=== PATIENT | male | born 1985 | race Caucasian/White ===

== ENCOUNTER 2018-07-21 15:03 | Inpatient (IN) | payer MEDICAID ==
[~2018-07-21] VITALS: Ht 157.5 cm; Wt 44.0 kg
--- NOTE | 2018-07-21 15:08 | NUR ---
NO ANSWER IN LOBBY AT THIS TIME.
--- NOTE | 2018-07-21 15:20 | NUR ---
pt to room from wall; BIB [facility] on Legal hold for SI ("no point in living, just want to end it"), flight of ideas, easily agitated; hx schitzophrenia & marijuana use; pt changed into gown, mostly calm & cooperative, NAD, comfort measures provided, pt in safe environment, personal belongings x2 bags (back pack & pt belongings bag) placed in locker, pt had a kitchen knife which was placed with security.
[2018-07-21 15:59] LABS: BASOPHILS # (AUTO) 0.03 x10^3/uL (0-0.1); BASOPHILS % (AUTO) 0 % (0-1); EOSINOPHILS # (AUTO) 0.01 x10^3/uL (0-0.4); EOSINOPHILS % (AUTO) 0 % (1-7); LYMPHOCYTES # (AUTO) 0.76 x10^3/uL (1-3.4); LYMPHOCYTES % (AUTO) 6 % (22-44); MD NO; MEAN CORPUSCULAR HEMOGLOBIN 29.5 pg (27.5-34.5); MEAN CORPUSCULAR HGB CONC 33.2 g/dL (33.2-36.2); MEAN CORPUSCULAR VOLUME 88.8 fL (81-97); MEAN PLATELET VOLUME 10.7 fL (7.4-10.4); MONOCYTES # (AUTO) 1.27 x10^3/uL (0.2-0.8); MONOCYTES % (AUTO) 9 % (2-9); NEUTROPHILS # (AUTO) 11.44 x10^3/uL (1.8-6.8); NEUTROPHILS % (AUTO) 85 % (42-75); PLATELET COUNT 188 x10^3/uL (130-400); RED BLOOD COUNT 5.63 x10^6/uL (4.38-5.82); RED CELL DISTRIBUTION WIDTH 14.7 % (9.4-14.8)
--- NOTE | 2018-07-21 16:03 | NUR ---
pt laying on gurney awake & calm, talking to self but responds to staff, NAD, comfort measures provided, pt remains in safe environment, sitter in view.
--- NOTE | 2018-07-21 16:07 | NUR ---
dinner tray given
[2018-07-21 16:09] LABS: ALBUMIN 4.5 g/dL (3.4-5.0); CALCIUM 8.4 mg/dL (8.5-10.1); CHLORIDE 93 mmol/L (98-107)
[2018-07-21 16:13] LABS: ALANINE AMINOTRANSFERASE 312 U/L (12-78); ALKALINE PHOSPHATASE 71 U/L (45-117); ANION GAP 9 mmol/L (5-15); BILIRUBIN,TOTAL 1.7 mg/dL (0.2-1.0); CREATININE 1.49 mg/dL (0.7-1.3); TOTAL PROTEIN 7.9 g/dL (6.4-8.2)
[2018-07-21 16:20] LABS: SALICYLATE LEVEL < 1.7 mg/dL (2.8-20.0)
[2018-07-21] MEDS ORDERED: LORazepam 1MG TABLET ONE (16:29)
[2018-07-21] MEDS ORDERED: LORazepam 1MG TABLET PO ONE (16:30)
[2018-07-21 16:48] LABS: AMPHETAMINE SCREEN, URINE Negative (Negative); BARBITURATE SCREEN, URINE Negative (Negative); BENZODIAZEPINE SCREEN, URINE Negative (Negative); CANNABINOID SCREEN, URINE Positive (Negative); COCAINE SCREEN, URINE Negative (Negative); METHADONE SCREEN, URINE Negative (Negative); OPIATE SCREEN, URINE Negative (Negative)
[2018-07-21] MEDS ORDERED: SODIUM CHLORIDE 0.9% 1,000ML IVBOLUS ONE (17:00)
--- NOTE | 2018-07-21 17:01 | NUR ---
pt laying on gurney mostly sleeping, NAD with equal chest rise/fall, no needs at this time, pt remains in safe environment, sitter in full view.
--- NOTE | 2018-07-21 17:17 | NUR ---
new dinner tray given without pork, per pt request.
--- NOTE | 2018-07-21 18:00 | NUR ---
pt continues laying on gurney with eyes closed, responds to staff, NAD, comfort measures provided, pt remains in safe environment, sitter in view.
--- NOTE | 2018-07-21 18:52 | NUR ---
report given to Jose Miguel
--- NOTE | 2018-07-21 19:24 | NUR ---
ASSUMED CARE FOR THIS PT AND AWAITING ADMIT MD WITH IVF RUNNING.
--- NOTE | 2018-07-21 20:58 | NUR ---
REPORT FROM GABRIEL GAMING. PT RESTING WITH NO NEEDS AT THIS TIME. SITTER IN VIEW OF PT.
[2018-07-21] MEDS ORDERED: BISACODYL 10 MG SUPP PR PRN (21:00)
[2018-07-21] MEDS ORDERED: ACETAMINOPHEN 325 MG TABLET PO PRN (21:00)
[2018-07-21] MEDS ORDERED: ONDANSETRON ODT 4 MG PO PRN (21:00)
[2018-07-21] MEDS ORDERED: POLYETHYLENE GLYCOL 17 GM PACKET PO PRN (21:00)
[2018-07-21 22:49] VITALS: BP 108/63
[2018-07-21] MEDS: SODIUM CHLORIDE 0.9% 1,000 ML IV SCH (22:53)
[2018-07-22 01:41] VITALS: BP 116/68
[2018-07-22 05:47] LABS: BASOPHILS # (AUTO) 0.01 x10^3/uL (0-0.1); BASOPHILS % (AUTO) 0 % (0-1); EOSINOPHILS # (AUTO) 0.03 x10^3/uL (0-0.4); EOSINOPHILS % (AUTO) 0 % (1-7); LYMPHOCYTES # (AUTO) 0.91 x10^3/uL (1-3.4); LYMPHOCYTES % (AUTO) 11 % (22-44); MD NO; MEAN CORPUSCULAR HEMOGLOBIN 29.5 pg (27.5-34.5); MEAN CORPUSCULAR HGB CONC 33.1 g/dL (33.2-36.2); MEAN CORPUSCULAR VOLUME 89.3 fL (81-97); MEAN PLATELET VOLUME 10.8 fL (7.4-10.4); MONOCYTES # (AUTO) 1.02 x10^3/uL (0.2-0.8); MONOCYTES % (AUTO) 12 % (2-9); NEUTROPHILS # (AUTO) 6.31 x10^3/uL (1.8-6.8); NEUTROPHILS % (AUTO) 76 % (42-75); PLATELET COUNT 159 x10^3/uL (130-400); RED BLOOD COUNT 4.74 x10^6/uL (4.38-5.82); RED CELL DISTRIBUTION WIDTH 14.9 % (9.4-14.8)
[2018-07-22 05:56] LABS: ALANINE AMINOTRANSFERASE 226 U/L (12-78); ALBUMIN 3.5 g/dL (3.4-5.0); ANION GAP 7 mmol/L (5-15); CALCIUM 7.6 mg/dL (8.5-10.1); CHLORIDE 104 mmol/L (98-107); CREATININE 0.89 mg/dL (0.7-1.3)
[2018-07-22 05:58] LABS: ALKALINE PHOSPHATASE 56 U/L (45-117); BILIRUBIN,TOTAL 1.5 mg/dL (0.2-1.0); TOTAL PROTEIN 6.2 g/dL (6.4-8.2)
[2018-07-22] MEDS: SODIUM CHLORIDE 0.9% 1,000 ML IV SCH (06:22)
[2018-07-22 07:29] VITALS: BP 110/65
[2018-07-22] MEDS: SENNA/DOCUSATE TABLET PO SCH (08:31)
[2018-07-22 09:56] LABS: MICROSCOPIC AUTO
[2018-07-22 10:01] LABS: CULTURE INDICATED? NO
[2018-07-22 13:35] VITALS: BP 113/61
[2018-07-22] MEDS ORDERED: ZIPRASIDONE 20MG CAPSULE PO ONE (14:00)
[2018-07-22 18:33] VITALS: BP 116/73
[2018-07-22] MEDS ORDERED: HALOPERIDOL 5 MG/ML IM ONE (18:45)
[2018-07-23 01:55] VITALS: BP 105/72
[2018-07-23 05:32] LABS: ALBUMIN 3.4 g/dL (3.4-5.0); ANION GAP 7 mmol/L (5-15); CALCIUM 8.1 mg/dL (8.5-10.1); CHLORIDE 109 mmol/L (98-107)
[2018-07-23 05:36] LABS: ALANINE AMINOTRANSFERASE 194 U/L (12-78); ALKALINE PHOSPHATASE 48 U/L (45-117); BILIRUBIN,TOTAL 0.9 mg/dL (0.2-1.0); CREATININE 0.83 mg/dL (0.7-1.3); TOTAL PROTEIN 6.1 g/dL (6.4-8.2)
[2018-07-23 06:32] VITALS: BP 109/57
[2018-07-23] MEDS: SENNA/DOCUSATE TABLET PO SCH (09:35)
[2018-07-23 18:51] VITALS: BP 126/89
[2018-07-24 02:46] VITALS: BP 137/88
[2018-07-24 08:45] VITALS: BP 121/83
[2018-07-24] MEDS: SENNA/DOCUSATE TABLET PO SCH (09:17)
[2018-07-24] MEDS: HALOPERIDOL 5 MG TABLET PO PRN (17:53)
[2018-07-24 19:50] VITALS: BP 132/104
[2018-07-24] MEDS: QUETIAPINE 100MG TABLET PO SCH (20:13)
[2018-07-25 08:02] VITALS: BP 95/58
[2018-07-25] MEDS: SENNA/DOCUSATE TABLET PO SCH (08:05)
[2018-07-25] MEDS: QUETIAPINE 25MG TABLET PO PRN (15:51)
[2018-07-25 19:13] VITALS: BP 123/76
[2018-07-25] MEDS: QUETIAPINE 100MG TABLET PO SCH (20:02)
[2018-07-26 07:59] VITALS: BP 127/75
[2018-07-26] MEDS: SENNA/DOCUSATE TABLET PO SCH (09:00)
[2018-07-26] MEDS: HALOPERIDOL 5 MG TABLET PO PRN ×2 (16:24→16:48)
[2018-07-26] MEDS: QUETIAPINE 25MG TABLET PO PRN ×2 (16:24→16:48)
[2018-07-26] MEDS ORDERED: QUETIAPINE 25MG TABLET PO PRN (19:00)
[2018-07-26 19:14] VITALS: BP 116/72
[2018-07-26] MEDS: DIVALPROEX 500 MG TAB.ER.24H PO SCH ×2 (19:30→21:00)
[2018-07-26] MEDS: QUETIAPINE 100MG TABLET PO SCH (19:30)
[2018-07-26] MEDS: HALOPERIDOL 5 MG/ML IM PRN (19:44)
[2018-07-27 07:54] VITALS: BP 117/64
[2018-07-27] MEDS: DIVALPROEX 500 MG TAB.ER.24H PO SCH ×3 (08:24→20:43)
[2018-07-27] MEDS: SENNA/DOCUSATE TABLET PO SCH (09:00)
[2018-07-27] MEDS: HALOPERIDOL 5 MG TABLET PO PRN ×2 (15:05→21:25)
[2018-07-27 19:05] VITALS: BP 102/73
[2018-07-27] MEDS: QUETIAPINE 100MG TABLET PO SCH (20:43)
[2018-07-28] MEDS: SENNA/DOCUSATE TABLET PO SCH (09:00)
[2018-07-28] MEDS: DIVALPROEX 500 MG TAB.ER.24H PO SCH ×3 (09:00→21:00)
[2018-07-28] MEDS: HALOPERIDOL 5 MG TABLET PO SCH (09:57)
[2018-07-28 10:30] VITALS: BP 96/64
[2018-07-28] MEDS ORDERED: LORazepam 2 MG/ML, 1ML ONE (13:03)
[2018-07-28] MEDS: HALOPERIDOL 5 MG/ML IM PRN (13:07)
[2018-07-28] MEDS ORDERED: LORazepam 2 MG/ML, 1ML IM ONE (13:30)
[2018-07-28] MEDS ORDERED: DIPHENHYDRAMINE 50 MG/ML, 1ML IM PRN (18:00)
[2018-07-28] MEDS ORDERED: LORazepam 2 MG/ML, 1ML IM PRN (18:00)
[2018-07-28 20:19] VITALS: BP 116/83
[2018-07-28] MEDS: QUETIAPINE 100MG TABLET PO SCH (21:00)
[2018-07-29] MEDS: DIVALPROEX 500 MG TAB.ER.24H PO SCH ×2 (09:00→21:00)
[2018-07-29] MEDS: SENNA/DOCUSATE TABLET PO SCH (09:00)
[2018-07-29] MEDS: HALOPERIDOL 5 MG TABLET PO SCH (10:09)
[2018-07-29 19:20] VITALS: BP 139/95
[2018-07-29] MEDS: QUETIAPINE 100MG TABLET PO SCH (21:00)
[2018-07-30 08:00] VITALS: BP 124/91
[2018-07-30] MEDS: HALOPERIDOL 5 MG TABLET PO SCH (08:33)
[2018-07-30] MEDS: BENZTROPINE 1 MG TABLET PO PRN (08:33)
[2018-07-30] MEDS: DIVALPROEX 500 MG TAB.ER.24H PO SCH ×3 (08:33→21:00)
[2018-07-30] MEDS: SENNA/DOCUSATE TABLET PO SCH (08:36)
[2018-07-30 19:23] VITALS: BP 114/65
[2018-07-30] MEDS: QUETIAPINE 100MG TABLET PO SCH (20:00)
[2018-07-30] MEDS: DIPHENHYDRAMINE 50 MG CAPSULE PO PRN (20:00)
[2018-07-31 08:00] VITALS: BP 106/74
[2018-07-31] MEDS: DIVALPROEX 500 MG TAB.ER.24H PO SCH (09:00)
[2018-07-31 12:03] VITALS: BP 94/60
[2018-07-31] MEDS: HALOPERIDOL 5 MG TABLET PO SCH (13:17)
[2018-07-31] MEDS: DIPHENHYDRAMINE 50 MG CAPSULE PO PRN (13:34)
[2018-07-31] MEDS: QUETIAPINE 100MG TABLET PO SCH (21:00)
[2018-08-01 08:00] VITALS: BP 122/87
[2018-08-01] MEDS: DIPHENHYDRAMINE 50 MG CAPSULE PO PRN ×2 (09:36→17:13)
[2018-08-01 19:35] VITALS: BP 100/68
[2018-08-01] MEDS: QUETIAPINE 100MG TABLET PO SCH (20:04)
[2018-08-02 09:25] VITALS: BP 112/79
[2018-08-02] MEDS: DIPHENHYDRAMINE 50 MG CAPSULE PO PRN ×2 (11:03→18:21)
[2018-08-02] MEDS: QUETIAPINE 100MG TABLET PO SCH (20:14)
[2018-08-02 20:16] VITALS: BP 123/87
[2018-08-03 07:50] VITALS: BP 109/81
[2018-08-03] MEDS ORDERED: HALOPERIDOL DECANOATE 50 MG/ML IM ONE (14:30)
[2018-08-03] MEDS: BENZTROPINE 1 MG TABLET PO PRN (14:48)
[2018-08-03] MEDS ORDERED: HALO5TAB5 PO (14:49)
[2018-08-03] MEDS ORDERED: BENZ1TAB61 PO (14:49)
== END 2018-08-03 15:59 | DRG 885 ==
LOC: ED 16:36 → EDIP 19:54 → 4NOR 22:04 → 2N 07-24 17:33
PROVIDERS: ADMIT Family Medicine; ATTEND Family Medicine
DX: F23 Brief psychotic disorder (principal); N17.0 Acute kidney failure with tubular necrosis; E87.1 Hypo-osmolality and hyponatremia; F20.0 Paranoid schizophrenia; D72.829 Elevated white blood cell count, unspecified; E86.0 Dehydration; F51.5 Nightmare disorder; R45.1 Restlessness and agitation; R74.0 Nonspecific elevation of levels of transaminase and lactic acid dehydrogenase [LDH]; Z91.018 Allergy to other foods
CPT/HCPCS: 36415; 76700; 80053; 80074; 80307; 81001; 82140; 85025; 86592; 87806; 96360; 96361; 99285; G0378; G0475; J1630; J2060; J7030